=== PATIENT | male | born 1995 | race African-American/Black ===

== ENCOUNTER 2022-04-30 02:55 | Emergency (ER) | payer MEDICAID ==
[~2022-04-30] VITALS: Ht 182.9 cm; Wt 83.9 kg
[2022-04-30] MEDS ORDERED: ORAL ANESTHETIC9 GM MM (03:19)
[2022-04-30] MEDS ORDERED: NAPR500 PO (03:19)
[2022-04-30] MEDS ORDERED: IBUP800 PO (06:51)
== END 2022-04-30 03:47 | disposition home or self-care (01) ==
LOC: ER 02:55
DX: K08.89 Other specified disorders of teeth and supporting structures (principal)
CPT/HCPCS: 99282; A9270

== ENCOUNTER 2022-04-30 04:43 | Emergency (ER) | payer MEDICAID ==
[~2022-04-30] VITALS: Ht 182.9 cm; Wt 83.9 kg
[~2022-04-30 04:43] MED LIST: NAPR500 PO; ORAL ANESTHETIC9 GM MM
[2022-04-30] MEDS ORDERED: IBUP800 PO (06:51)
== END 2022-04-30 07:28 | disposition home or self-care (01) ==
LOC: ER 04:43
DX: K08.89 Other specified disorders of teeth and supporting structures (principal); F17.210 Nicotine dependence, cigarettes, uncomplicated; Z79.899 Other long term (current) drug therapy
CPT/HCPCS: 64400; 96374-59; 99282-25; J1885